=== PATIENT | female | born 1980 | race Two or more races ===

== ENCOUNTER 2025-08-05 13:29 | Emergency (ER) | payer MEDICAID ==
[~2025-08-05] VITALS: Ht 152.4 cm; Wt 61.6 kg
[2025-08-05 13:45] VITALS: TEMP 97.1
[2025-08-05] MEDS ORDERED: IBUP-1984 PO (15:02)
--- NOTE | 2025-08-05 15:02 | Physician Documentation ---
History of Present Illness ~ Chief Complaint: Leg Pain Stated Complaint: LEG PAIN Time Seen by MD: 14:29 Primary Medical Doctor: NONE REBA 45-year-old female presents in the emergency room with vague history of constitutional symptoms of lower extremity pain and complaints. The best of my ability I can ascertain that her pain is worse with walking originates from the heel isn't most consistent with plantar fasciitis. She does have obvious flat feet and has no urgent or shoes. Tetanus witin 5 years: Yes Medication Reconciliation Allergies: Coded Allergies: No Known Allergies (Unverified , 08/05/25) Scheduled Ibuprofen* (Motrin*), 1 TAB PO Q8H Past Medical History Past Medical History: No Pertinent History Past Surgical History: no surgical history Alcohol Use: None Drug Use: none Occupation: unemployed Review of Systems All Other Systems at this time: Reviewed and Negative Physical Exam Vital Signs: RN Vital Signs have been reviewed: Yes, Temperature: 97.1, Source: Temporal, Heart Rate: 120, Respiratory Rate: 16, BP: 161/109, Pulse Oximetry: 99, Weight: 61.600 Oxygen Flow Rate: 0 General Appearance: alert, WD/WN, no apparent distress Head: normal inspection EENT: PERRL/EOMI Respiratory: no respiratory distress Gastrointestinal: normal palpation Back: normal inspection Hips: normal inspection Legs: normal inspection Knees: normal inspection Ligaments: normal Ankles: normal inspection Achilles Tendon: tender Feet: other (flat feet, bilat mild achillis discomfort no homans) Distal Function: no motor deficit, no sensory deficit Skin: normal color Lymphatic: normal inspection Neurologic: oriented x4 Psychiatric: normal mood/affect Progress Results/Orders Results/Orders Vital Signs 08/05/25 13:45 Temp 97.1 Pulse 120 Resp 16 B/P (MAP) 161/109 Pulse Ox 99 O2 Flow Rate 0 Medical Decision Making Additional information obtaine: N/A Findings Patient examination rivera and history as suspect he is consistent with constitutional symptoms representing bilateral plantar fasciitis. We will trial ibuprofen and heel cups. No clinical suspicion for DVTs or tendinopathy seco ndary to recent antibiotic use. No clinical suspicion for electrolyte derangement responsible for the two to three-week history. Patient does do a fair amount of walking. General Diff Dx:Considerations: Include: Other (Noncontributory) Knee Diff Dx:Considerations: Include: Other (Noncontributory) Ankle Diff Dx:Considerations: Include: Other (Noncontributory) Foot Diff Dx:Considerations: Include: Arthritis, DJD, Neurovascular injury, Other (Plantar fasciitis) Toe Diff Dx:Considerations: Include: Other (noncontributory) Departure Disposition: 01 HOME / SELF CARE / HOMELESS Impression: Primary Impression: Plantar fasciitis, bilateral Condition: Stable Discharge Instructions: Muscle Strain, Otfl-um-Govw, Plantar Fasciitis, Plantar Fasciitis Rehab Additional Instructions: Who examined history is consistent with plantar fasciitis. Please begin anti- inflammatory medicine, read attachments and consider obtaining heel cups from the pharmacy. Make follow up appointment with the primary care physician for repeat examination. Referrals: NO PRIMARY CARE PROVIDER (PCP) Prescriptions Ibuprofen* (Motrin*) 400 Mg Tablet 1 TAB PO Q8H for pain or fever for 10 Days, #30 TAB Prov: DERECK LAZAR 08/05/25 Education Educated: Patient Educated regarding: diagnosis, treatment, prognosis, need for follow up Signature Scribe Signature: . Attestation: . DERECK LAZAR Aug 05, 2025 15:02
[2025-08-05 15:38] VITALS: BP 126/82; PULSE 103; RESP 16; O2SAT 100
== END 2025-08-05 15:39 | disposition home or self-care (01) ==
LOC: ER 13:29
DX: M72.2 Plantar fascial fibromatosis (principal); Z56.0 Unemployment, unspecified; Z79.899 Other long term (current) drug therapy
CPT/HCPCS: 99283